=== PATIENT | male | born 1985 | race Two or more races ===

== ENCOUNTER 2023-01-23 09:05 | Inpatient (IN) | payer OTHER ==
[~2023-01-23] VITALS: Ht 180.3 cm; Wt 81.6 kg
[2023-01-23 10:57] LABS: HEMATOCRIT 43.9 % (39.0-48.0); HEMOGLOBIN 14.7 g/dL (13-16.00); MEAN CELL VOLUME 84.2 fL (80.0-100.00); MEAN CORPUSCULAR HEMOGLOBIN 28.2 pg (27.00-32.0); MEAN CORPUSCULAR HGB CONC 33.4 g/dl (32.0-36.0); PLATELET COUNT 242 K/uL (150-450); RED BLOOD COUNT 5.21 M/uL (4.00-6.00)
[2023-01-23 11:00] LABS: URINE APPEARANCE Clear; URINE BILIRRUBIN Negative (NEGATIVE); URINE BLOOD Negative; URINE COLOR Yellow; URINE GLUCOSE Negative (NEGATIVE); URINE LEUKOCYTE Negative; URINE NITRATE Negative; URINE PROTEIN Negative (NEGATIVE); URINE UROBILINOGEN 0.2 E.U./dl
[2023-01-23 11:25] LABS: URINE BACTERIA 1.2 uL (0.0-1933); URINE EPITHELIAL CELLS 0.1 uL (0.0-38.8); URINE RBC 1.7 uL (0.0-20.8); URINE WBC 0.7 uL (0.0-23.2)
[2023-01-23 11:35] LABS: CALCIUM 9.6 mg/dL (8.5-10.1); CREATININE SERUM 0.98 mg/dL (0.70-1.30); GFR 86.54; POTASSIUM 4.11 mEq/L (3.5-5.1)
[2023-01-23 22:36] LABS: INR 1.12; PARTIAL THROMBOPLASTIN TIME 28.6 SECONDS (22.0-34.0); PROTHROMBIN TIME 11.7 SECONDS (9.0-11.5)
== END 2023-01-26 20:58 | disposition home or self-care (01) | DRG 399 ==
LOC: ER 09:05 → SURH 20:29
PROVIDERS: Emergency Medicine; General Practice; Surgery; ADMIT Specialist; ATTEND Specialist
PROC: BW21ZZZ Computerized Tomography (CT Scan) of Abdomen and Pelvis (ICD-10-PCS; 2023-01-23)
PROC: 0DTJ4ZZ Resection of Appendix, Percutaneous Endoscopic Approach (ICD-10-PCS; principal; 2023-01-25 18:00)
DX: K35.32 Acute appendicitis with perforation, localized peritonitis, and gangrene, without abscess (principal)